=== PATIENT | female | born 1990 | race Two or more races ===

== ENCOUNTER 2020-06-26 18:34 | Emergency (ER) | payer BC, MEDICAID ==
[~2020-06-26 18:34] MED LIST: AUGMENTIN 875-1 EAC1 ORAL; NORCO 5-325 TA1 EACH ORAL
--- NOTE | 2020-06-26 18:49 | NUR ---
called pt into triage. pt no present in waiting room
--- NOTE | 2020-06-26 18:55 | NUR ---
called for pt again in waiting room, not present
--- NOTE | 2020-06-26 19:34 | Emergency Room Report ---
History of Present Illness General Chief Complaint: To Be Triaged Present Illness HPI LWBS Allergies: Coded Allergies: No Known Allergies (Unverified , 01/28/14) Medical Decision Making Diagnostic Impression: Primary Impression: Patient left without being seen Referrals: NON PHYSICIAN (PCP) Gabriel Cali Jun 26, 2020 19:34
[2020-06-26] MEDS ORDERED: TYLENOL EXTRA500 MG ORAL (20:32)
[2020-06-26] MEDS ORDERED: IBUPROFEN600 M1 ORAL (20:32)
[2020-06-26] MEDS ORDERED: LIDODERM700 M1 TOPIC (20:32)
== END 2020-06-26 18:45 | disposition left against medical advice (07) ==
LOC: EMR 18:39
DX: Z53.21 Procedure and treatment not carried out due to patient leaving prior to being seen by health care provider (principal)

== ENCOUNTER 2020-06-26 19:33 | Emergency (ER) | payer BC, MEDICAID ==
[~2020-06-26] VITALS: Ht 152.4 cm; Wt 92.1 kg
--- NOTE | 2020-06-26 19:44 | NUR ---
ED Nurse Note: Patient walked into ED c/o right sided pain from her legs to her right arm after [place], patient reports no LOC. full rom on right upper extremity. patient ao4 with no acute distress. ambulates with steady gait. all safety measures met.
[2020-06-26 19:45] VITALS: BP 128/81
[2020-06-26] MEDS ORDERED: Ketorolac 30mg Inj IM ONE (20:00)
--- NOTE | 2020-06-26 20:14 | Emergency Room Report ---
History of Present Illness General Chief Complaint: Multiple Trauma/Fall Source: Patient Present Illness HPI 30-year-old female with no significant past medical history here status post fall earlier today. Report that she slept and landed on the back of her head, complaining of headache, neck shoulder pain. Has range of motion analysis criteria noted. Dizziness. Has not taken medication for symptoms. Patient reports that she breast-feeds. Denies urinary bowel incontinence.74-year-old male with recent history of left lower leg amputation which to has not taken medication for symptom relief. Denies all other injuries. Also complaining of right shoulder pain rating it 3 out of 10. No impingement sign noted. Has full active motion. Allergies: Coded Allergies: No Known Allergies (Unverified , 01/28/14) COVID-19 Screening COVID-19 risk:Contact w/high r: No Has patient experienced nash: No COVID-19 Testing performed [employer]: Yes - 06/16/20 COVID-19 Screening: Negative COVID-19 COVID-19 Testing Source: clinic Patient History Past Medical History: see triage record Past Surgical History: none Pertinent Family History: none Last Menstrual Period: 06/19/20 Now: No Immunizations: UTD Reviewed Nursing Documentation: PMH: Agreed; PSxH: Agreed Nursing Documentation-PMH Past Medical History: No Stated History Review of Systems All Other Systems: negative except mentioned in HPI Physical Exam Vital Signs Date Time Temp Pulse Resp B/P (MAP) Pulse Ox O2 Delivery O2 Flow Rate FiO2 06/26/20 19:39 98.1 59 18 128/81 (97) 97 Room Air Sp02 EP Interpretation: reviewed, normal General Appearance: normal inspection, alert, no apparent distress, GCS 15 Head: normocephalic, atraumatic Eyes: normal eye exam, PERRL, EOMI, lids + conjunctiva normal, no hyphema, no racoon eyes ENT: normal ENT inspection, TMs + canals normal, oropharynx normal, no white signs Neck: trach midline, no bony tend, full range of motion without pain Respiratory: effort normal, no retractions, clear to auscultation, chest symmetrical, palpation of chest normal, speaking in full sentences Cardiovascular: regular rate, rhythm, no JVD Cardiovascular #2: 2+ radial (R), 2+ radial (L), 2+ dorsalis pedis (R), 2+ dorsalis pedis (L) Gastrointestinal: normal inspection, non-tender, non-distended, no rebound/guarding, normal bowel sounds Musculoskeletal: normal ROM, non-tender, back normal Skin: no rash, no lacerations, normal palpation Lymphatic: normal inspection Neurologic: oriented x3, sensory intact, motor strength/tone normal, normal speech Psychiatric: normal inspection, memory normal, mood normal, no suic idal/homicidal ideation Medical Decision Making PA Attestation ALL Diagnosis and treatment plan reviewed and discussed with my supervising physician Dr. Seals Diagnostic Impression: Primary Impression: Head contusion Additional Impressions: Cervical strain Shoulder sprain ER Course 30-year-old female with no significant past medical history here status post fall earlier today. Report that she slept and landed on the back of her head, complaining of headache, neck shoulder pain. Has range of motion analysis criteria noted. Dizziness. Has not taken medication for symptoms. Patient reports that she breast-feeds. Denies urinary bowel incontinence.74-year-old male with recent history of left lower leg amputation which to has not taken medication for symptom relief. Denies all other injuries. Also complaining of right shoulder pain rating it 3 out of 10. No impingement sign noted. Has full active motion. Ddx considered but are not limited to: cerebral hematoma, concussion, skull fracture, head contusion, cervical strain versus fracture versus sprain, shoulder sprain versus strain versus fracture Vital signs: are WNL, pt. is afebrile H&PE are most consistent with: Head contusion, cervical strain, shoulder sprain ORDERS: head CT no contrast, CT C-spine no contrast, right shoulder x-ray, Motrin, lidocaine patch, Tylenol ED INTERVENTIONS: Toradol DISCHARGE: At this time pt. is stable for d/c to home. Will provide printed patient care instructions, and any necessary prescriptions. Care plan and follow up instructions have been discussed with the patient prior to discharge., Take medication as directed, follow primary care provider, if worsening symptoms return to the emergency room Other X-Ray Diagnostic Results Other X-Ray Diagnostic Results : X-Ray ordered: Right shoulder # of Views/Limited Vs Complete: 3 View Indication: Pain EP Interpretation: Yes Interpretation: no dislocation, no soft tissue swelling, no fractures Impression: No acute disease Electronically Signed by: Gabriel Serrano PA-C CT/MRI/US Diagnostic Results CT/MRI/US Diagnostic Results #1: Imaging Test Ordered: CT head no contrast Impression COMPARISON: No relevant prior studies available. FINDINGS: Brain: No hemorrhage. No edema. Ventricles: No ventriculomegaly. Bones/joints: No acute fracture. Soft tissues: Unremarkable. Sinuses: No acute sinusitis. Mastoid air cells: No mastoid effusion. IMPRESSION: No acute intracranial process. CT/MRI/US Diagnostic Results #2: Imaging Test Ordered: CT C-spine no contrast Impression CLINICAL HISTORY: TRAUMA TECHNIQUE: Axial computed tomography images of the cervical spine without intravenous contrast. CTDI is 20.2 mGy and DLP is 477.8 mGy-cm. One or more of the following dose reduction techniques were used: automated exposure control, adjustment of the mA and/or kV according to patient size, use of iterative reconstruction technique. COMPARISON: No relevant prior studies available. FINDINGS: Vertebrae: No acute fracture or destructive changes. Discs/spinal canal/neural foramina: No acute process. Soft tissues: Unremarkable. IMPRESSION: No fracture or malalignment. Last Vital Signs Date Time Temp Pulse Resp B/P (MAP) Pulse Ox O2 Delivery O2 Flow Rate FiO2 06/26/20 19:45 61 18 Room Air 06/26/20 19:45 98.1 128/81 97 Disposition: HOME, SELF-CARE Condition: Stable Scripts Acetaminophen* (TYLENOL EXTRA STRENGTH*) 500 Mg Tablet 500 MG ORAL Q8H PRN for Prn Headache/Temp > 101, #30 TAB 0 Refills Prov: Gabriel Cali 06/26/20 Lidocaine Patch* (Lidoderm Patch*) 1 Each Adh..patch 1 PATCH TOPIC DAILY, #30 PATCH Patch(es) may remain in place for up to 12 hours in any 24-hour period. Prov: Gabriel Cali 06/26/20 Ibuprofen* (MOTRIN*) 600 Mg Tablet 600 MG ORAL Q6H PRN for For Pain, #30 TAB 0 Refills Prov: Gabriel Cali 06/26/20 Patient Instructions: Cervical Strain and Sprain With Rehab-SportsMed, Facial or Scalp Contusion, [id number], Shoulder Sprain Additional Instructions: Take medication as directed, follow primary care provider, if worsening symptoms return to the emergency room Gabriel Cali Jun 26, 2020 20:14
--- NOTE | 2020-06-26 20:28 | Diagnostic Imaging Report ---
EXAM: CT Head Without Intravenous Contrast CLINICAL HISTORY: TRAUMA TECHNIQUE: Axial computed tomography images of the head/brain without intravenous contrast. CTDI is 53.4 mGy and DLP is 1018.8 mGy-cm. One or more of the following dose reduction techniques were used: automated exposure control, adjustment of the mA and/or kV according to patient size, use of iterative reconstruction technique. COMPARISON: No relevant prior studies available. FINDINGS: Brain: No hemorrhage. No edema. Ventricles: No ventriculomegaly. Bones/joints: No acute fracture. Soft tissues: Unremarkable. Sinuses: No acute sinusitis. Mastoid air cells: No mastoid effusion. IMPRESSION: No acute intracranial process.
[2020-06-26] MEDS ORDERED: TYLENOL EXTRA500 MG ORAL (20:32)
[2020-06-26] MEDS ORDERED: IBUPROFEN600 M1 ORAL (20:32)
[2020-06-26] MEDS ORDERED: LIDODERM700 M1 TOPIC (20:32)
--- NOTE | 2020-06-26 20:36 | Diagnostic Imaging Report ---
EXAM: CT Cervical Spine Without Intravenous Contrast CLINICAL HISTORY: TRAUMA TECHNIQUE: Axial computed tomography images of the cervical spine without intravenous contrast. CTDI is 20.2 mGy and DLP is 477.8 mGy-cm. One or more of the following dose reduction techniques were used: automated exposure control, adjustment of the mA and/or kV according to patient size, use of iterative reconstruction technique. COMPARISON: No relevant prior studies available. FINDINGS: Vertebrae: No acute fracture or destructive changes. Discs/spinal canal/neural foramina: No acute process. Soft tissues: Unremarkable. IMPRESSION: No fracture or malalignment.
[2020-06-26 20:45] VITALS: BP 128/81
--- NOTE | 2020-06-26 20:45 | NUR ---
ER DISCHARGE NOTE: Patient is cleared to be discharged per ERMD, pt is aox4, on room air, with stable vital signs. pt was given dc and prescription instructions, pt was able to verbalize understanding, pt id bandremoved. pt is able to ambulate with steady gait. pt took all belongings.
--- NOTE | 2020-06-27 16:47 | Diagnostic Imaging Report ---
Indication: Pain, trauma Technique: 3 views of the right shoulder Comparison: none Findings: No acute fracture. No dislocation. Joint spaces are preserved Impression: Negative
== END 2020-06-26 20:45 | disposition home or self-care (01) ==
LOC: EMR 19:53
DX: S00.83XA Contusion of other part of head, initial encounter (principal); S16.1XXA Strain of muscle, fascia and tendon at neck level, initial encounter; S43.401A Unspecified sprain of right shoulder joint, initial encounter; W01.10XA Fall on same level from slipping, tripping and stumbling with subsequent striking against unspecified object, initial encounter; Y93.9 Activity, unspecified; Y92.9 Unspecified place or not applicable
CPT/HCPCS: 70450; 72125; 73030; 96372; 99284; J1885

== ENCOUNTER 2020-08-01 19:33 | Emergency (ER) | payer BC, MEDICAID ==
[~2020-08-01] VITALS: Ht 152.4 cm; Wt 90.7 kg
[~2020-08-01 19:33] MED LIST changes: +IBUPROFEN600 M1 ORAL; +LIDODERM700 M1 TOPIC; +TYLENOL EXTRA500 MG ORAL
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
[2020-08-01 20:08] VITALS: BP 121/80
--- NOTE | 2020-08-01 20:30 | NUR ---
ED Nurse Note: CT scan done
--- NOTE | 2020-08-01 20:50 | Diagnostic Imaging Report ---
EXAM: CT Head Without Intravenous Contrast CLINICAL HISTORY: TRAUMA TECHNIQUE: Axial computed tomography images of the head/brain without intravenous contrast. CTDI is 68.7 mGy and DLP is 1379.3 mGy-cm. One or more of the following dose reduction techniques were used: automated exposure control, adjustment of the mA and/or kV according to patient size, use of iterative reconstruction technique. COMPARISON: CT head dated 06/26/20. FINDINGS: Brain: Unremarkable. No hemorrhage. No significant white matter disease. No edema. Ventricles: Unremarkable. No ventriculomegaly. Bones/joints: Unremarkable. No acute fracture. Soft tissues: Unremarkable. Sinuses: Unremarkable as visualized. No acute sinusitis. Mastoid air cells: Unremarkable as visualized. No mastoid effusion. IMPRESSION: No acute intracranial pathology.
--- NOTE | 2020-08-01 21:01 | Diagnostic Imaging Report ---
EXAM: CT Maxillofacial Without Intravenous Contrast CLINICAL HISTORY: TRAUMA TECHNIQUE: Axial computed tomography images of the face without intravenous contrast. CTDI is 68.7 mGy and DLP is 1379.3 mGy-cm. One or more of the following dose reduction techniques were used: automated exposure control, adjustment of the mA and/or kV according to patient size, use of iterative reconstruction technique. COMPARISON: CT orbits dated 01/29/14. FINDINGS: Bones/joints: There is acute fracture of the right nasal bone. There is 3.4 mm offset at the fracture line. There is surrounding soft tissue edema at the right nasomaxillary region. There is an old fracture of the medial right orbital wall. This was present on the previous exam. Soft tissues: See above. Orbits: Unremarkable. Sinuses: Unremarkable. No air-fluid levels. IMPRESSION: 1. Acute fracture of the right nasal bone with 3.4 mm offset. 2. Soft tissue edema in the right nasomaxillary region.
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
--- NOTE | 2020-08-01 21:52 | NUR ---
ER DISCHARGE NOTE: Patient is cleared to be discharged per ERMD, pt is aox4, on room air, with stable vital signs. pt was given dc and prescription instructions, pt was able to verbalize understanding, pt id band removed. pt is able to ambulate with steady gait. pt took all belongings.
[2020-08-01 21:53] VITALS: BP 121/80
== END 2020-08-01 21:53 | disposition home or self-care (01) ==
LOC: EMR 20:19
DX: S02.2XXA Fracture of nasal bones, initial encounter for closed fracture (principal); S00.11XA Contusion of right eyelid and periocular area, initial encounter; Y04.2XXA Assault by strike against or bumped into by another person, initial encounter; Y93.9 Activity, unspecified; Y92.9 Unspecified place or not applicable; Z72.89 Other problems related to lifestyle; Z86.16 Personal history of COVID-19
CPT/HCPCS: 70450; 70486; 99284